=== PATIENT | female | born 1970 | race Caucasian/White ===

== ENCOUNTER 2021-03-01 13:20 | Outpatient (REF) | payer SELFPAY | END 2021-03-01 13:21 | disposition home or self-care (01) | LOC: HO.HAP 13:20 | PROVIDERS: Visit Provider Internal Medicine | DX: Z46.1 Encounter for fitting and adjustment of hearing aid (principal); H90.3 Sensorineural hearing loss, bilateral | CPT/HCPCS: V5267 ==

== ENCOUNTER 2023-06-05 13:10 | Outpatient (REF) | payer SELFPAY | END 2023-06-05 13:11 | disposition home or self-care (01) | LOC: HO.HAP 13:10 | PROVIDERS: Visit Provider Internal Medicine | DX: Z46.1 Encounter for fitting and adjustment of hearing aid (principal); H90.3 Sensorineural hearing loss, bilateral | CPT/HCPCS: 92700; V5267 ==

== ENCOUNTER 2023-09-18 08:00 | Outpatient (REF) | payer OTHER, SELFPAY | END 2023-09-18 08:01 | disposition home or self-care (01) | LOC: HO.SH 08:00 | PROVIDERS: Visit Provider Internal Medicine | DX: Z01.118 Encounter for examination of ears and hearing with other abnormal findings (principal); H90.3 Sensorineural hearing loss, bilateral | CPT/HCPCS: 92557 ==

== ENCOUNTER 2023-09-18 09:01 | Outpatient (REF) | payer SELFPAY ==
--- NOTE | 2023-09-19 08:46 | MHC.AU.HA3 ---
Hearing Instrument Follow-Up- Binaural Date of Visit: 09/18/23 Right Ear: Model Basil, Color, Serial Number: Shaina Diaz [id number] SN: [id number] Color: [employer] Repair Warranty: 10/21/2022 Dry Wall Plasterer Loss and Damage Warranty: 10/21/2022 Battery Size: 13 Client Manager/Slim Tube: 0M [place]/Dome/CShell/SlimTip:Large open dome Type of Wax Guard: CeruShield Dispensed By: [facility] Date of Fittin08/07/2019 Left Ear: Basil, , Color, Serial Number: Shaina Diaz [id number] SN: [id number] Color: Trish [employer] Repair Warranty: 10/21/2022 Dry Wall Plasterer Loss and Damage Warranty: 10/21/2022 Battery Size: 13 Client Manager/Slim Tube: 0M Earmold/Dome/CShell/SlimTip: Large open dome Type of Wax Guard: CeruShield Dispensed By: [facility] Date of Fittin08/07/2019 Follow-Up Summary: Ariela returned for an updated hearing test and hearing aid maintenance. Cleaned hearing aids. Vacuumed microphones. Ran through dehumidifier. Replaced domes and wax guards. Updated firmware. Reran feedback analyzer and reprogrammed to updated hearing test due to slight change in hearing 2-4 kHz. Previously set to auto acclimatization; however, gain was still set to 80%. Turned off auto acclimatization and increased overall gain level to 90%. Also increased noise management settings in [id number] and [id number] programs due to continued difficulty in background noise (e.g., at a restaurant, wedding). Discussed realistic expectations. Ariela will trial new settings. Advised to call within 2-3 weeks if issues with sound quality arise to be covered under today's fee. Recommendations: Hearing instrument follow-up or maintenance as needed. Please contact our clinic with any questions or concerns. Diagnosis Code(s): Primary Diagnosis: H90.3 Bilateral Sensorineural Hearing Loss Signature: Provider: Madalyn Garcia, [facility]
== END 2023-09-18 09:02 | disposition home or self-care (01) ==
LOC: HO.HAP 09:01
PROVIDERS: Visit Provider Internal Medicine
DX: Z46.1 Encounter for fitting and adjustment of hearing aid (principal); H90.3 Sensorineural hearing loss, bilateral
CPT/HCPCS: 92593

== ENCOUNTER 2024-03-31 13:29 | Outpatient (REF) | payer SELFPAY | END 2024-03-31 13:30 | disposition home or self-care (01) | LOC: HO.HAP 13:29 | PROVIDERS: Visit Provider Internal Medicine | DX: Z46.1 Encounter for fitting and adjustment of hearing aid (principal); H90.3 Sensorineural hearing loss, bilateral | CPT/HCPCS: V5299 ==

== ENCOUNTER 2024-11-03 15:58 | Outpatient (REF) | payer SELFPAY ==
--- OUTSIDE RECORDS SUMMARY | 2024-11-03 18:39 | XMS_ITS ---
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2 0.2-1.0 mg/dL Nitrite, Urine Negative Negative Microscopic Examination See below: Micr oscopic was indicated and was performed. WBC None seen 0 - 5 /hpf RBC None seen 0 - 2 /hpf Epithelial Cells (non renal) 0-10 0 - 10 /hpf Casts None seen None seen /lpf Bacteria None seen None seen/Few CBC With Differential/Platel et-[id number] Reviewed date:11/01/2024 04:45:22 PM Interpretation: Performing Lab:[facility], [address], [place], Phone - [phone], Director - Soly Notes/Report: WBC 8.2 3.4-10.8 x10E3/uL RBC 4.23 3.77-5.28 x10E6/uL Hemoglobin 13.5 11.1-15.9 g/dL Hematocrit 40.8 34.0-46.6 % MCV 97 79-97 fL MCH 31.9 26.6-33.0 pg MCHC 33.1 31.5-35.7 g/dL RDW 12.2 11.7-15.4 % Platelets 326 150-450 x10E3/uL Neutrophils 69 Not Estab. % Lymphs 18 Not Estab. % Monocytes 10 Not Estab. % Eos 2 Not Estab. % Basos 1 Not Estab. % Neutrophils (Absolute) 5.8 1.4-7.0 x10E3/uL Lymphs (Absolute) 1.4 0.7-3.1 x10E3/uL Monocytes(Absolute) 0.8 0.1-0.9 x10E3/uL Eos (Absolute) 0.1 0.0-0.4 x10E3/uL Baso (Absolute) 0.0 0.0-0.2 x10E3/uL Immature Granulocytes 0 Not Estab. % Immature Grans (Abs) 0.0 0.0-0.1 x10E3/uL Vitamin D, 97-Mihidqa-[id number] Reviewed date:11/01/2024 04:45:22 PM Interpretation: Performing Lab:[facility], [address] [place] [address], [place], Phone - [phone], Director - Gina Notes/Report: Vitamin D, 25-Hydroxy 22.3 30.0-100.0 ng/mL Vitamin D deficiency has been defined by the [place] of [employer] and an Endocrine Society practice guideline as a level of serum 25-OH vitamin D less than 20 ng/mL (1,2). The Endocrine Society went on to further define vitamin D insufficiency as a level between 21 and 29 ng/mL (2). 1. IOM ([place] of [employer]). 2010. Dietary reference intakes for calcium and D. [place]: The National Academies Press. 2. Jaxson MF, Arnulfo NC, Sade REYES, et al. Evaluation, treatment, and prevention of vitamin D deficiency: an Endocrine Society clinical practice guideline. JCEM. 2010; 96(7):1911-30. Comp. Metabolic Panel (14)-3 [id number] Reviewed date:11/01/2024 04:45:22 PM Interpretation: Performing Lab:[facility] [place], [address] [facility], Phone - [phone], Director - Gina Notes/Report: Glucose 101 70-99 mg/dL BUN 5 6-24 mg/dL Creatinine 0.74 0.57-1.00 mg/dL eGFR 96 >59 mL/min/1.73 BUN/Creatinine Ratio 7 9-23 Sodium 142 134-144 mmol/L Potassium 4.1 3.5-5.2 mmol/L Chloride 105 96-106 mmol/L Carbon Dioxide, Total 21 20-29 mmol/L Calcium 9.5 8.7-10.2 mg/dL Protein, Total 7.1 6.0-8.5 g/dL Albumin 4.6 3.8-4.9 g/dL Globulin, Total 2.5 1.5-4.5 g/dL Bilirubin, Total 0.3 0.0-1.2 mg/dL Alkaline Phosphatase 82 44-121 IU/L AST (SGOT) 17 0-40 IU/L ALT (SGPT) 16 0-32 IU/L LP+Non-HDL Cholesterol-[id number] 5 Reviewed date:11/01/2024 04:45:22 PM Interpretation: Performing Lab:[facility] [place], [address] [facility], Phone - [phone], Director - Gina Notes/Report: Cholesterol, Total 190 100-199 mg/dL Triglycerides 180 0-149 mg/dL HDL Cholesterol 42 >39 mg/dL VLDL Cholesterol Juwan 32 5-40 mg/dL LDL Chol Calc (NIH) 116 0-99 mg/dL Non-HDL Cholesterol 148 0-129 mg/dL FIB-4 w/Rx HOROWITZ [address] -[id number] Reviewed date:11/01/2024 04:45:22 PM Interpretation: Performing Lab:[facility] [place], [address] [facility], [place], Phone - [phone], Director - Soly Notes/Report: FIB-4 Index 0.70 0.00-2.67 0.00 - 1.29 Low risk for advanced liver fibrosis 1.30 - 2.67 Indeterminate risk for advanced liver fibrosis >2.67 High risk for advanced fibrosis and for the development of other liver related events Phosphatidylethanol (PEth)-7 27685 Reviewed date:11/01/2024 04:45:22 PM Interpretation: Performing [facility], [address] [place] [address], Phone - [phone], Director - Gina Notes/Report: PHOSPHATIDYLETHANOL Negative Phosphatidylethanol (PEth) Negative Analyzed compound: PEth 16:0/18:1. 7-jghkxecrh-1-oleoyl-sn- nsawuws-5-moybjxgzajjukv . Analysis performed by Liquid Chromatography with Tandem Mass Spectrometry (LC/MS/MS). Detection limit: 20 ng/mL PEth levels in excess of 20 ng/mL are considered evidence of moderate to heavy ethanol consumption. However, the Center for Substance Abuse Treatment (CSAT) advises caution in interpretation and use of biomarkers alone to assess alcohol use. Results should be interpreted in the context of all available clinical and behavioral information. Reference: Substance Abuse and Mental Health Services Administration (2012). The Role of Biomarkers in the Treatment of Alcohol Use Disorders , 2012 Revision. Advisory, Volume 11, Issue 2. This test was developed and its performance characteristics determined by [facility]. It has not been cleared or approved by the Food and Drug Administration. HCV Antibody-[id number] Reviewed date:11/01/2024 04:45:22 PM Interpretation: Performing Lab:[facility], [address] [place] [address], Phone - [phone], Director - Gina Notes/Report: Hep C Virus Ab Non Reactive Non Reactive HCV antibody alone does not differentiate between previously resolved infection and active infection. Equivocal and Reactive HCV antibody results should be followed up with an HCV RNA test to support the diagnosis of active HCV infection. REASON FOR VISIT Annual Wellness Medications Medication SIG (Take, Route, Frequency, Duration) Notes Start Date End Date Status Vitamin D3 2000 UNIT 1 tablet Orally Once a day Not-Taking Omeprazole 20 MG take 1 capsule by [facility] daily 30 minutes before a morning meal for 90 Active Multi For Her Active Tums Active Tylenol 1 tab Oral for 14 days Active Vitamin B-12 1000 MCG 1 tablet Orally On ce a day for 30 day(s) Active Ibuprofen 200 MG 1 tablet with food o r milk as needed Orally Three times a day Not-Taking Vitamin C 500 MG as directed Orally Active Immunizations Vaccine Route Administration Date Status Comme nts *Tdap IM Intramuscular 10/27/2024 Administered Social History Tobacco Use: Social History Observation Description Date Details (start date - stop date) Never Smoker NA - NA AUDIT-C (Standard) Question Answer Notes Did you have a drink contain ing alcohol in the past year? Yes How often did you have a dri nk containing alcohol in the past year? 2 to 4 times a month (2 points) How many drinks did you have on a typical day when you were drinking in the past year? 1 or 2 drinks (0 point) How often did you have six o r more drinks on one occasion in the past year? Never (0 point) Points 2 Interpretation Negative Tobacco Control (Standard) Question Answer Notes Tobacco use: Nonsmoker Problems Problem Type SNOMED Code ICD Code Onset Dates Problem Status W/U Status Risk Notes Problem HOROWITZ - Nonalcoholic steatohepatitis (106405299) Nonalcoholic steatohepatitis (HOROWITZ) (K75.81) Active confirmed Vital Signs Temperature 97.7 degrees Fahrenheit 10/28/19 25 Blood pressure systolic 116 mm Hg 10/28/19 25 Blood pressure diastolic 66 mm Hg 025 Heart Rate 77 /min 10/27/2024 Height 63 in 10/27/2024 Weight 187 lbs 10/27/2024 BMI 33.12 kg/m2 10/27/2024 Oximetry 99 % 10/27/2024 Encounters Encounter Location Date Provider Diagnosis Jodee Stevenson MD [address] [phone] 10/27/2024 Jodee Stevenson Encounter for genera l adult medical examination without abnormal findings Z00.00 ; Mixed hyperlipidemia E78.2 ; Nonalcoholic steatohepatitis (HOROWITZ) K75.81 ; Vitamin D deficiency, unspecified E55.9 ; Encounter for screening for malignant neoplasm of colon Z12.11 ; Encounter for screening mammogram for malignant neoplasm of breast Z12.31 ; Encounter for screening for osteoporosis Z13.820 ; Encounter for screening for cardiovascular disorders Z13.6 ; Encounter for immunization Z23 ; Encounter for antibody response examination Z01.84 ; Encounter for screening for other viral diseases Z11.59 ; Sensorineural hearing loss, bilateral H90.3 and Presence of external hearing-aid Z97.4 Assessments Encounter Date Diagnosis (ICD Code) Assessment Notes Treatment Notes Treatment Clinical Notes Section Notes 10/27/2024 Encounter for general adult medical examination without abnormal findings (ICD-10 - Z00.00) General healthcare up-to-date. Check routine labs 10/27/2024 Mixed hyperlipidemia (ICD-10 - E78.2) Stable on prior labs as reviewed. Recheck status 10/27/2024 Nonalcoholic steatohepatitis (HOROWITZ) (ICD-10 - K75.81) Her transaminitis has normalized. Can recheck status to verify that it remains normal and evaluation for autoimmune etiology was unremarkable. Can also assess for risk for fibrosis. 10/27/2024 Vitamin D deficiency, unspecified (ICD-10 - E55.9) Fair control on prior labs as reviewed. Recheck level and would consider vitamin D supplementation for goal level of 30+ 10/27/2024 Encounter for screening for malignant neoplasm of colon (ICD-10 - Z12.11) Due for repeat colon cancer screening 10/27/2024 Encounter for screening mammogram for malignant neoplasm of breast (ICD-10 - Z12.31) Due for repeat breast cancer screening as per biennial recommendation 10/27/2024 Encounter for screening for osteoporosis (ICD-10 - Z13.820) Will consider osteoporosis screening closer to age 65 or after menopause 10/27/2024 Encounter for screening for cardiovascular disorders (ICD-10 - Z13.6) Blood pressure stable. Can check for comorbidity of hyperlipidemia and hyperglycemia to further assess risk 10/27/2024 Encounter for immunization (ICD-10 - Z23) Vaccines updated 10/27/2024 Encounter for antibody response examination (ICD-10 - Z01.84) Titers have been checked in the past and there is immunity to rubeola 10/27/2024 Encounter for screening for other viral diseases (ICD-10 - Z11.59) Can screen for hepatitis C as per general recommendation 10/27/2024 Sensorineural hearing loss, bilateral (ICD-10 - H90.3) Stable and unchanged 10/27/2024 Presence of external hearing-aid (ICD-10 - Z97.4) Stable and unchanged 10/27/2024 Other This note was created with voice dictation recognition software and may contain errors of grammar and syntax. Also labs were reviewed with patient. Plan Of Treatment Pending Test Test Name Order Date COLOGUARD 10/27/2024 MG MAMMO DIGITAL SCREENING BILAT 025 Next Appt Details Follow Up: 1 Year, Reason: A nnual Provider Name:Jodee Stevenson , 11/04/2025 08:30:00 AM, [address] [place] [address], [address], [place], [phone], Progress Notes * Mack PARDOOB:1970 (54 yo F)Acc No.[id number]:10/27/2024 Progress Notes Patient:Ariela INTERIANO Provider:?Jodee Stevenson MD :1970???Age:54 Y???Sex:Female D ate:10/27/2024 Address:[address] [place], [place] [id number] Subjective: * Chief Complaints: * ???Annual Wellness * HPI: ???Depression Screening:?PHQ-2 (2015 Edition)?Little interest or pleasure in doing things??Not at all ?Feeling down, depressed, or hopeless??Not at all ?Total Score?0 * Medical History:? * Surgical History:?Appendecto my 1998 * Ocular Surgical History:? Ocular Surgical History revi ewed with the patient. * Hospitalization/Major Diagno stic Procedure:?Denies Past Hospitalization * Family History:?Father: jose hinojosa 87 yrs, Healthy.?Spouse: alive 53 yrs, Healthy.?Mother: , Heart disease. at 72 years old.?4 sister(s) - healthy. .? No family history of: cancer-breast No family history of: cancer-colon Father: CAD, Hyperlipidemia Maternal grandmother: CVA (stroke) Paternal grandmother: CAD (AWV) Family history verified no changes since last visit. * Social History:?Tobacco Use:?Tobacco Control (Standard)?Tobacco use:?Nonsmoker ???Drugs/Alcohol:?Drugs?Have you used drugs other than those for medical reasons in the past 12 months??No ?Caffeine?Intake:?1-2 cups per day ?Do you smoke marijuana?: Denies. ?Do you drink alcohol?: Yes, Socially. ???Miscellaneous:?Exercise: no. 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 ???Household:?Household?Marital status:?Drug/Alcohol:?AUDIT-C (Standard)?Did you have a drink containing alcohol in the past year??Yes ?How often did you have a drink containing alcohol in the past year??2 to 4 times a month (2 points) ?How many drinks did you have on a typical day when you were drinking in the past year??1 or 2 drinks (0 point) ?How often did you have six or more drinks on one occasion in the past year??Never (0 point) ?Points?2 ?Interpretation?Negative * Medications:?TakingVitamin B -12 1000 MCG Tablet 1 tablet Orally Once a day Vitamin C 500 MG Capsule as directed Orally Tylenol 1 tab Oral Tums Multi For Her Omeprazole 20 MG Capsule Delayed Release take 1 capsule by mouth daily 30 minutes before a morning meal Taking Vitamin B-12 1000 MCG Tablet 1 tablet Orally Once a day Taking Vitamin C 500 MG Capsule as directed Orally Taking Tylenol 1 tab Oral Taking Tums Taking Multi For Her Taking Omeprazole 20 MG Capsule Delayed Release take 1 capsule by mouth daily 30 minutes before a morning meal Not-Taking/PRNVitamin D3 2000 UNIT Tablet 1 tablet Orally Once a day Ibuprofen 200 MG Tablet 1 tablet with food or milk as needed Orally Three times a day Not-Taking/PRN Vitamin D3 2000 UNIT Tablet 1 tablet Orally Once a day Not-Taking/PRN Ibuprofen 200 MG Tablet 1 tablet with food or milk as needed Orally Three times a day DiscontinuedDicyclomine HCl 20 MG Tablet TAKE 1 TABLET BY MOUTH 4 TIMES DAILY Methocarbamol 500 MG Tablet TAKE 1 & 1/2 TABLETS BY MOUTH EVERY 4 HOURS Medication List reviewed and reconciled with the patientDiscontinued Dicyclomine HCl 20 MG Tablet TAKE 1 TABLET BY MOUTH 4 TIMES DAILY Discontinued Methocarbamol 500 MG Tablet TAKE 1 & 1/2 TABLETS BY MOUTH EVERY 4 HOURS Medication List reviewed and reconciled with the patient * Allergies:?N.K.D.A.no[Allerg ies Verified] Objective: * Vitals:?Temp:97.7F, HR:77/mi n, BP:Sitting Right Arm: 116/66mm Hg, Wt:187lbs, BMI:33.12Index, Ht:63in, Oxygen sat %:99%. Past Vitals:* 07/17/2023 Temp:97.5F, HR:78/min, BP: 1 40/90 mm Hg,Sitting Right Arm:136/70mm Hg, Wt:197.4lbs, BMI:34.96Index, Ht:63in, Oxygen sat %:96% * 07/04/2022 BP:Sitting Right Arm:128/80m m Hg, Wt:192lbs, BMI:34.01Index, Ht:63in * 12/04/2021 Wt:207 lb 2 oz, BMI:36.69Ind ex, Ht:63in * ???Past Orders: Lab:COMPLETE CBC WITH DIFF * Collection Date 07/17/2023 09/11/2019 Collection Time 11:20 AM 11:18 AM Order Date 07/17/2023 03/27/2019 WBC 8.4 (Ref Range: (4.0-11.0) K/MM3) 10.9 (Ref Range: (4.0-11.0) K/MM3) RBC 4.20 (Ref Range: (4.20-5.40) M/MM3) 4.16?L (Ref Range: (4.20-5.40) M/MM3) HGB 13.6 (Ref Range: (11.7-15.5) GM/DL) 13.6 (Ref Range: (11.7-15.5) GM/DL) HCT 41.2 (Ref Range: (35.7-45.8) %) 40.3 (Ref Range: (35.7-45.8) %) MCV 98.1 (Ref Range: (80.0-100.0) FL) 96.9 (Ref Range: (80.0-100.0) FL) MCH 32.4 (Ref Range: (27.0-34.0) PG) 32.7 (Ref Range: (27.0-34.0) PG) MCHC 33.0 (Ref Range: (33.0-37.0) g/dL) 33.7 (Ref Range: (33.0-37.0) g/dL) MPV 10.4 (Ref Range: (9.4-12.4) FL) 10.3 (Ref Range: (9.4-12.4) FL) RDW-SD 42.0 (Ref Range: (<47.0) FL) 41.6 (Ref Range: (<47.0) FL) ABS. NRBC 0.0 (Ref Range: K/MM3) 0.0 (Ref Range: K/MM3) Imm Gran 0.4 (Ref Range: %) 0.3 (Ref Range: %) Abs. Imm Gran 0.0 (Ref Range: K/MM3) 0.0 (Ref Range: K/MM3) PLT 364 (Ref Range: (150-460) K/MM3) 397 (Ref Range: (150-460) K/MM3) AUTOMATED NRBC 0.0 (Ref Range: #/100 WBC'S) 0.0 (Ref Range: #/100 WBC'S) NEUT 56.9 (Ref Range: (44-76) %) 63.4 (Ref Range: (44-76) %) LYMPH 32.1 (Ref Range: (15-43) %) 24.3 (Ref Range: (15-43) %) MONOCYTE 8.9 (Ref Range: (4.5-10.5) %) 9.8 (Ref Range: (4.5-10.5) %) EO 1.1 (Ref Range: (0-6) %) 1.7 (Ref Range: (0-6) %) LYMPH # 2.7 (Ref Range: (0.8-3.1) K/MM3) 2.6 (Ref Range: (0.8-3.1) K/MM3) BASO 0.6 (Ref Range: (0-2) %) 0.5 (Ref Range: (0-2) %) MONO# 0.8 (Ref Range: (0.4-0.9) K/MM3) 1.1?H (Ref Range: (0.4-0.9) K/MM3) NEUT # 4.8 (Ref Range: (1.3-7.0) K/MM3) 6.9 (Ref Range: (1.3-7.0) K/MM3) EO # 0.1 (Ref Range: (0.0-0.4) K/MM3) 0.2 (Ref Range: (0.0-0.4) K/MM3) BASO # 0.1 (Ref Range: (0.0-0.1) K/MM3) 0.1 (Ref Range: (0.0-0.1) K/MM3) * Lab:COMPREHENSIVE METABOLIC PANEL * Collection Date 07/17/2023 04/22/2020 09/11/2019 Collection Time 11:20 AM 12:40 PM 11:18 AM Order Date 07/17/2023 03/29/2020 03/27/2019 ALBUMIN 4.5 (Ref Range: (3.4-4.8) GM/DL) 4.6 (Ref Range: (3.4-4.8) GM/DL) 4.8 (Ref Range: (3.4-4.8) GM/DL) ALK PHOS 71 (Ref Range: (35-104) U/L) 85 (Ref Range: (35-104) U/L) 71 (Ref Range: (35-104) U/L) BILIRUBIN,TOTAL 0.4 (Ref Range: (0-1.2) MG/DL) 0.4 (Ref Range: (0-1.2) MG/DL) 0.2 (Ref Range: (0-1.2) MG/DL) CALCIUM 9.7 (Ref Range: (8.6-10.5) MG/DL) 9.5 (Ref Range: (8.6-10.5) MG/DL) 9.8 (Ref Range: (8.6-10.5) MG/DL) BICARBONATE 26 (Ref Range: (22-29) MMOL/L) 23 (Ref Range: (22-29) MMOL/L) 25 (Ref Range: (22-29) MMOL/L) CHLORIDE 104 (Ref Range: (98-107) MMOL/L) 100 (Ref Range: (98-107) MMOL/L) 102 (Ref Range: (98-107) MMOL/L) EST GFR NON AMERI 106 (Ref Range: ML/MIN/1.73 M2) 102 (Ref Range: ML/MIN/1.73 M2) 87 (Ref Range: ML/MIN/1.73 M2) EST GFR NR 118 (Ref Range: ML/MIN/1.73 M2) 100 (Ref Range: ML/MIN/1.73 M2) CREATININE 0.7 (Ref Range: (0.5-1.0) MG/DL) 0.7 (Ref Range: (0.5-1.0) MG/DL) 0.8 (Ref Range: (0.5-1.0) MG/DL) ANION GAP 9 (Ref Range: (4-17)) 16 (Ref Range: (4-17)) 13 (Ref Range: (4-17)) GLUCOSE 96 (Ref Range: (70-99) MG/DL) 96 (Ref Range: (70-99) MG/DL) 101?H (Ref Range: (70-99) MG/DL) AST 20 (Ref Range: (0-32) U/L) 35?H (Ref Range: (0-32) U/L) 25 (Ref Range: (0-32) U/L) ALT 25 (Ref Range: (0-33) U/L) 66?H (Ref Range: (0-33) U/L) 44?H (Ref Range: (0-33) U/L) POTASSIUM 4.2 (Ref Range: (3.6-5.2) MMOL/L) 4.1 (Ref Range: (3.6-5.2) MMOL/L) 4.6 (Ref Range: (3.6-5.2) MMOL/L) SODIUM 139 (Ref Range: (133-145) MMOL/L) 139 (Ref Range: (133-145) MMOL/L) 140 (Ref Range: (133-145) MMOL/L) TOTAL PROTEIN 7.2 (Ref Range: (6.2-8.2) GM/DL) 7.5 (Ref Range: (6.2-8.2) GM/DL) 8.1 (Ref Range: (6.2-8.2) GM/DL) BUN 8 (Ref Range: (6-20) MG/DL) 5?L (Ref Range: (6-20) MG/DL) 10 (Ref Range: (6-20) MG/DL) AG RATIO 1.7 1.6 1.5 * Lab:LIPID PANEL W REFLEX TO DLDL * Collection Date 07/17/2023 09/11/2019 Collection Time 11:20 AM 11:18 AM Order Date 07/17/2023 03/27/2019 LDL CHOLESTEROL, CALCULAT 136?H (Ref Range: (0-130) MG/DL) 174?H (Ref Range: (0-130) MG/DL) CHOLESTEROL, TOTAL 213?H (Ref Range: (<200) MG/DL) 272?H (Ref Range: (<200) MG/DL) HDL CHOL 62 (Ref Range: (>39) MG/DL) 56 (Ref Range: (>39) MG/DL) NON HDL CHOLESTEROL (CALC 151 (Ref Range: (<160) MG/DL) 216?H (Ref Range: (<160) MG/DL) TRIGLYCERIDES 73 (Ref Range: (<150) MG/DL) 211?H (Ref Range: (<150) MG/DL) CHOLESTEROL/HDL RATIO (CA 3.4 (Ref Range: (<5.0)) 4.9 (Ref Range: (<5.0)) * Lab:25OH VITAMIN D * Collection Date 07/17/2023 09/11/2019 Collection Time 11:20 AM 11:18 AM Order Date 07/17/2023 03/27/2019 25OH VITAMIN D 33.5 (Ref Range: (20-50) NG/ML) 30.9 (Ref Range: (20-50) NG/ML) * Lab:COMPLETE URINALYSIS * Collection Date 07/17/2023 09/11/2019 Collection Time 11:20 AM 11:18 AM Order Date 07/17/2023 03/27/2019 APPEAR/COLOR COLORLESS LIGHT YELLOW SP. GRAVITY 1.005 (Ref Range: (1.002-1.030)) 1.006 (Ref Range: (1.002-1.030)) URINE PH 7.0 (Ref Range: (5.0-8.0)) 7.0 (Ref Range: (5.0-8.0)) URINE ALBUMIN NEGATIVE (Ref Range: (NEG)) NEGATIVE (Ref Range: (NEG)) URINE GLUCOSE NEGATIVE (Ref Range: (NEG)) NEGATIVE (Ref Range: (NEG)) URINE KETONES NEGATIVE (Ref Range: (NEG)) NEGATIVE (Ref Range: (NEG)) URINE BILIRUBIN NEGATIVE (Ref Range: (NEG)) NEGATIVE (Ref Range: (NEG)) URINE HEMOGLOBN NEGATIVE (Ref Range: (NEG)) NEGATIVE (Ref Range: (NEG)) URINE NITRITE NEGATIVE (Ref Range: (NEG)) NEGATIVE (Ref Range: (NEG)) URINE LEUKOCYTE NEGATIVE (Ref Range: (NEG)) NEGATIVE (Ref Range: (NEG)) UROBILINOGEN NORMAL (Ref Range: (NORM) MG/DL) NORMAL (Ref Range: (NORM) MG/DL) URINE WBC'S <1 (Ref Range: (0-5) /HPF) <1 (Ref Range: (0-5) /HPF) URINE RBC'S <1 (Ref Range: (0-3) /HPF) 1 (Ref Range: (<3) /HPF) BACTERIA SLIGHT?A (Ref Range: (NEG) HPF) SLIGHT?A (Ref Range: (NEG) HPF) SQUAMOUS EPITH 4 (Ref Range: (0-8) /HPF) 1 (Ref Range: /HPF) ???Lab:ANTI-HEPATITIS C W/RFLX HCV QNT (Order Date - 07/17/2023) (Collection Date & Time - 07/17/2023 11:20 AM)?ValueReference Range?ANTI- HEPATITIS CNEGATIVE(NEG) - ???Lab:MMR (MEASLES, MUMPS, RUBELLA) IGG TITER (Order Date - 03/27/2019) (Collection Date & Time -09/11/2019 11:18 AM)?ValueReference Range ?MUMPS AB IGGPOSITIVE-?RUBELLA IGG ANTIBODYPOSITIVE- ?RUBEOLA AB IGGPOSITIVE- * Examination: ???General Examination: ?GENERAL APPEARANCE:?Age appropriate, in no acute distress, well developed, well nourished.?HEAD:?normocephalic, atraumatic.?EYES:?extraocular movement intact (EOMI), sclera non-icteric.?NECK/THYROID:?neck supple, full range of motion, no thyromegaly.?LYMPH NODES:?no cervical adenopathy.?HEART:?regular rate and rhythm, S1, S2 normal.?LUNGS:?clear to auscultation bilaterally.?BACK:?no kyphosis, no scoliosis.?EXTREMITIES:?no clubbing, cyanosis, or edema.?NEUROLOGIC:?nonfocal, alert and oriented, gait normal, motor strength grossly normal upper and lower extremities, no tremor.?PSYCH:?alert, oriented, good eye contact.? Assessment: * Assessment: 1.?Mixed hyperlipidemia - E7 8.2???2.?Encounter for general adult medical examination without abnormal findings - Z00.00 (Primary)???3.?Nonalcoholic steatohepatitis (HOROWITZ) - K75.81???4.?Vitamin D deficiency, unspecified - E55.9? ?5.?Encounter for screening for malignant neoplasm of colon - Z12.11???6.?Encounter for screening mammogram for malignant neoplasm of breast - Z12.31???7.?Encounter for screening for osteoporosis - Z13.820???8.?Encounter for screening for cardiovascular disorders - Z13.6???9.?Encounter for immunization - Z23???10.?Encounter for antibody response examination - Z01.84???11.?Encounter for screening for other viral diseases - Z11.59???12.?Sensorineural hearing loss, bilateral - H90.3???13.?Presence of external hearing-aid - Z97.4??? Plan: * Treatment: ? Value Reference Range ?Specific [place] 1.007 1.005- 1.030 - * ?pH 6.5 5.0-7.5 - * ?Urine-Color Yellow Yellow - * ?Appearance Clear Clear - * ?WBC Esterase Negative Negative - * ?Protein Negative Negative/Trace - * ?Glucose Negative Negative - * ?Ketones Negative Negative - * ?Occult Blood Trace A Negative - * ?Bilirubin Negative Negative - * ?Urobilinogen,Semi-Qn 0.2 0. 2-1.0 - mg/dL * ?Nitrite, Urine Negative Negative - * ?Microscopic Examination See below: - * ?WBC None seen 0 - 5 - /hpf * ?RBC None seen 0 - 2 - /hpf * ?Epithelial Cells (non renal) 0-10 0 - 10 - /hpf * ?Casts None seen None seen - /lp f * ?Bacteria None seen None seen/Few - * This lab was reviewed by Chuck Stevenson on 11/01/2024 at 16:45 PM EDT ?LAB: CBC With Differential/Platelet-[id number]* ? Value Reference Range ?WBC 8.2 3.4-10.8 - x10E 3/uL * ?RBC 4.23 3.77-5.28 - x10 E6/uL * ?Hemoglobin 13.5 11.1-15.9 - g/dL * ?Hematocrit 40.8 34.0-46.6 - % * ?MCV 97 79-97 - fL * ?MCH 31.9 26.6-33.0 - pg * ?MCHC 33.1 31.5-35.7 - g/d L * ?RDW 12.2 11.7-15.4 - % * ?Platelets 326 150-450 - x10 E3/uL * ?Neutrophils 69 Not Estab. - % * ?Lymphs 18 Not Estab. - % * ?Monocytes 10 Not Estab. - % * ?Eos 2 Not Estab. - % * ?Basos 1 Not Estab. - % * ?Neutrophils (Absolute) 5.8 1.4-7.0 - x10E3/uL * ?Lymphs (Absolute) 1.4 0.7-3 .1 - x10E3/uL * ?Monocytes(Absolute) 0.8 0.1 -0.9 - x10E3/uL * ?Eos (Absolute) 0.1 0.0-0.4 - x10E3/uL * ?Baso (Absolute) 0.0 0.0-0.2 - x10E3/uL * ?Immature Granulocytes 0 N ot Estab. - % * ?Immature Grans (Abs) 0.0 0. 0-0.1 - x10E3/uL * This lab was reviewed by Chuck Stevenson on 11/01/2024 at 16:45 PM EDT ?LAB: Comp. Metabolic Panel [id number] ? Value Reference Range ?Glucose 101 H 70-99 - mg/dL * ?BUN 5 L 6-24 - mg/dL * ?Creatinine 0.74 0.57-1.00 - mg/dL * ?BUN/Creatinine Ratio 7 L 9- 23 - * ?Sodium 142 134-144 - mmol/ L * ?Potassium 4.1 3.5-5.2 - mmo l/L * ?Chloride 105 96-106 - mmol/ L * ?Carbon Dioxide, Total 21 2 0-29 - mmol/L * ?Calcium 9.5 8.7-10.2 - mg/d L * ?Protein, Total 7.1 6.0-8.5 - g/dL * ?Albumin 4.6 3.8-4.9 - g/dL * ?Globulin, Total 2.5 1.5-4.5 - g/dL * ?Bilirubin, Total 0.3 0.0-1. 2 - mg/dL * ?Alkaline Phosphatase 82 44 -121 - IU/L * ?AST (SGOT) 17 0-40 - IU/L * ?ALT (SGPT) 16 0-32 - IU/L * ?eGFR 96 >59 - mL/min/1. 73 * This lab was reviewed by Chuck Stevenson on 11/01/2024 at 16:45 PM EDT ?LAB: LP+Non-HDL Cholesterol-[id number]* ? Value Reference Range ?Cholesterol, Total 190 100- 199 - mg/dL * ?Triglycerides 180 H 0-149 - m g/dL * ?HDL Cholesterol 42 >39 - m g/dL * ?VLDL Cholesterol Jwuan 32 5- 40 - mg/dL * ?LDL Chol Calc (NIH) 116 H 0-9 9 - mg/dL * ?Non-HDL Cholesterol 148 H 0-1 29 - mg/dL * This lab was reviewed by Chuck Stevenson on 11/01/2024 at 16:45 PM EDT Clinical Notes: General healthcare up-to-date. Check routine labs??2.?Mixed hyperlipidemia? Clinical Notes: Stable on prior labs as reviewed. Recheck status?? 3.?Nonalcoholic steatohepatitis (HOROWITZ)?LAB: FIB-4 w/Rx HOROWITZ FibroSure Plus-[id number]* ? Value Reference Range ?FIB-4 Index 0.70 0.00-2.67 - * This lab was reviewed by Chuck Stevenson on 11/01/2024 at 16:45 PM EDT ?LAB: Phosphatidylethanol (PEth)-[id number]* ? Value Reference Range ?PHOSPHATIDYLETHANOL Negative - * ?Phosphatidylethanol (PEth) Negative - ng/mL * This lab was reviewed by Chuck Steevnson on 11/01/2024 at 16:45 PM EDT Clinical Notes: Her transaminitis has normalized. Can recheck status to verify that it remains normal and evaluation for autoimmune etiology was unremarkable. Can also assess for risk for fibrosis. ?4.?Vitamin D deficiency, unspecified?LAB: Vitamin D, 84-Tqrmygo-[id number]* ? Value Reference Range ?Vitamin D, 25-Hydroxy 22.3 L 3 0.0-100.0 - ng/mL * This lab was reviewed by Chuck Stevenson on 11/01/2024 at 16:45 PM EDT Clinical Notes: Fair control on prior labs as reviewed. Recheck level and would consider vitamin D supplementation for goal level of 30+??5.?Encounter for screening for malignant neoplasm of colon?LAB: COLOGUARD Clinical Notes: Due for repeat colon cancer screening??6.?Encounter for screening mammogram for malignant neoplasm of breast?Imaging: MG MAMMO DIGITAL SCREENING BILAT Clinical Notes: Due for repeat breast cancer screening as per biennial recommendation??7.?Encounter for screening for osteoporosis? Clinical Notes: Will consider osteoporosis screening closer to age 65 or after menopause??8.?Encounter for screening for cardiovascular disorders? Clinical Notes: Blood pressure stable. Can check for comorbidity of hyperlipidemia and hyperglycemia to further assess risk??9.?Encounter for immunization? Clinical Notes: Vaccines updated??10.?Encounter for antibody response examination? Clinical Notes: Titers have been checked in the past and there is immunity to rubeola??11.?Encounter for screening for other viral diseases?LAB: HCV Antibody-[id number]* ? Value Reference Range ?Hep C Virus Ab Non Reactive Non Reac tive - * This lab was reviewed by Chuck Stevenson on 11/01/2024 at 16:45 PM EDT Clinical Notes: Can screen for hepatitis C as per general recommendation?? 12.?Sensorineural hearing loss, bilateral? Clinical Notes: Stable and unchanged??13.?Presence of external hearing-aid? Clinical Notes: Stable and unchanged??14.?Others? Clinical Notes: This note was created with voice dictation recognition software and may contain errors of grammar and syntax. Also labs were reviewed with patient.?? * Immunizations:? *Tdap : 0.5 mL (Route: Intramuscular) given by [facility] on Left Deltoid (Encounter for immunization) * Procedure Codes:?G0446 EDGARDO F 2F INT BEHV TX CV DZ IND 15 MN, Modifiers: 25 89417 TDAP VACCINE >7 [id number] IMMUNIZATION ADMIN * Preventive Medicine:? ??YOUR PREVENTIVE WELLNESS PLAN:?Prenar?The Recommended Frequency is:?1 dose age 65+ ?Breast Cancer Screening (Mammogram):?The Recommended Frequency is:?Every 1 year, age 50-74 (without family history), Every 2 year, age 40-50 (without family history) ?Osteoporosis Screening (Bone Density Measurement):?The Recommended Frequency is:?Routinely, for women ages 65+ ?Colorectal Cancer Screening:?The Recommended Frequency is:?Every 3 years, Cologuard ?Pneumococcal (Pneumonia) Vaccine:?The Recommended Frequency is:?1 dose age 65+ ?Influenza (Flu) Vaccine:?The Recommended Frequency is:?Annually ??Immunizations:?TdaP?Last Tdap was administered?12/25/2012 ?Tetanus?Last Tetanus was administered?11/14/2011 ?Influenza?Last Influenza was administered?09/11/2022 ?COVID?Food Service Technician?Moderna ?First Dose?12/15/2020 ?Second Dose?01/17/2021 ??Screenings:?Breast Cancer Screening:?Date of most recent screening:?07/18/2022 ?Imaging Location?[facility] ?Colon cancer screening?Date of most recent screening:?05/03/2021 ?Colorectal screening:?Cologuard ?Provider recommendation:?3 years * Follow Up:?1 Year (Reason: A nnual) Care Plan: * Problems:? * Images: Billing Information: * Visit Code:? G0442 Annual Alcohol Misuse Screening, 15 min. Modifiers: 25 G0444 Annual Depression Screening, 15 min. Modifiers: 64431 Preventive Care Est Pt. Age 40-64. * Procedure Codes:? G0446 EDGARDO F2F INT BEHV TX CV DZ IND 15 MN. Modifiers: 75392 TDAP VACCINE >7 IM. 78690 IMMUNIZATION ADMIN. * Sign off status: Completed true * Provider:?Jodee Stevenson MD Date:?10/27 Generated for Jadoni ng/Faxing/eTransmitting on:?11/03/2024 06:39 PM EDT History and Physical Notes * HPI (History of Present Illness) Category Sub-Category Detail Notes Category Not es Depression Screening PHQ-2 (2015 Edition) Little interest or pleasure in doing things?: Not at all Feeling down, depressed, or hopeless?: N ot at all Total Score: 0 Examination Category Sub-Category Detail Notes Category Not es General Examination GENERAL APPEARANCE: Age appr opriate, in no acute distress, well developed, well nourished HEAD: normocephalic, atrau matic EYES: extraocular movement intact (EOMI), sclera non-icteric NECK/THYROID: neck supple, full ra nge of motion, no thyromegaly HEART: regular rate and rhy thm, S1, S2 normal LUNGS: clear to auscultatio n bilaterally NEUROLOGIC: nonfocal, alert and oriented, gait normal, motor strength grossly normal upper and lower extremities, no tremor EXTREMITIES: no clubbing, cyanosi s, or edema BACK: no kyphosis, no scol iosis LYMPH NODES: no cervical adenopat hy PSYCH: alert, oriented, goo d eye contact
--- OUTSIDE RECORDS SUMMARY | 2024-11-03 18:39 | XMS_ITS ---
Author Organization Jodee Stevenson MD Address [address] [id number] Care Team Providers Care Bingo Attendant Name Role Phone Jodee Stevenson Primary Care Provider REASON FOR VISIT Annual Encounters Encounter Location Date Provider Diagnosis Jodee Stevenson MD [address] [place] [address] [place] [phone] 07/30/2024 Jodee Stevenson Plan Of Treatment Next Appt Details Provider Name:Jodee Stevenson , 11/04/2025 08:30:00 AM, [address] [place] [address], [place] [address], [place], [place], [phone], Progress Notes * Mack GAVINOB:1970 (54 yo F)Acc No.[id number]:07/30/2024 Progress Notes Patient:?Ariela GAVIN Provider:?Joede Stevenson MD :1970???Age:53 Y???Sex:Female D ate:07/30/2024 Address:[address] [place] [address], [place], [id number] Subjective: * Chief Complaints: * ???1. Annual. * Medical History:? * Ocular Surgical History:? Objective: * Vitals:? Past Vitals:* 07/17/2023 Temp:97.5F, HR:78/min, BP: 1 40/90 mm Hg,Sitting Right Arm:136/70mm Hg, Wt:197.4lbs, BMI:34.96Index, Ht:63in, Oxygen sat %:96% * 07/04/2022 BP:Sitting Right Arm:128/80m m Hg, Wt:192lbs, BMI:34.01Index, Ht:63in * 12/04/2021 Wt:207 lb 2 oz, BMI:36.69Ind ex, Ht:63in Assessment: Plan: * Treatment: Care Plan: * Problems:? * Images: Billing Information: * Visit Code:? * Procedure Codes:? * Electronic signature of Charlette Stevenson MD on 11/03/2024 at 06:39 PM EDT Sign off status: Pending * Provider:?Jodee Stevenson MD Date:?07/30 Generated for Mansoor arambula/Charley/Keshawn on:?11/03/2024 06:39 PM EDT
--- OUTSIDE RECORDS SUMMARY | 2024-11-03 18:39 | XMS_ITS ---
Author Organization Jodee Stevenson MD Address [address] [place] [phone] Care Team Providers Care Utility Operator Yarn Name Role Phone Jodee Stevenson Primary Care Provider REASON FOR VISIT 4m f/u bp Encounters Encounter Location Date Provider Diagnosis Jodee Stevenson MD [address] [place] [address] [place] [phone] 10/25/2023 Jodee Stevenson Plan Of Treatment Next Appt Details Provider Name:Jodee Stevenson , 11/04/2025 08:30:00 AM, [address] [place] [address], [place] [address], [place], [place], [phone], Progress Notes * Mack GAVINOB:1970 (54 yo F)Acc No.[id number]:10/25/2023 Progress Notes Patient:?Ariela GAVIN Provider:?Jodee Stevenson MD :1970???Age:53 Y???Sex:Female D ate:10/25/2023 Address:[address] [place] [address], [id number] Subjective: * Chief Complaints: * ???1. 4m f/u bp. * Medical History:? Objective: * Vitals:? Past Vitals:* 07/17/2023 Temp:97.5F, HR:78/min, BP: 1 40/90 mm Hg,Sitting Right Arm:136/70mm Hg, Wt:197.4lbs, BMI:34.96Index, Ht:63in, Oxygen sat %:96% * 07/04/2022 BP:Sitting Right Arm:128/80m m Hg, Wt:192lbs, BMI:34.01Index, Ht:63in * 12/04/2021 Wt:207 lb 2 oz, BMI:36.69Ind ex, Ht:63in Assessment: Plan: * Treatment: * Images: Billing Information: * Visit Code:? * Procedure Codes:? * Electronic signature of Charlette Stevenson MD on 11/03/2024 at 06:39 PM EDT Sign off status: Pending * Provider:?Jodee Stevenson MD Date:?10/24 Generated for Mansoor arambula/Charley/Keshawn on:?11/03/2024 06:39 PM EDT
--- OUTSIDE RECORDS SUMMARY | 2024-11-03 18:39 | XMS_ITS | Clinical Summary ---
Author Organization [facility] Address [address] [place] [address] Phone Care Team Providers Care Carpenter Refrigerator Name Role Phone Jodee Gloria MD Primary Care Provider [phone] Allergies No known active allergies Medications calcium carbonate (TUMS E-X ORAL) Take by mouth. Activ e calcium carbonate (TUMS ORAL) Take 1,000 mg by mouth. Active cyanocobalamin, vitamin B-12, (VITAMIN B-12 ORAL) Take by mouth. Activ e dicyclomine (BENTYL) 20 mg tablet Take 20 mg by mouth every 6 hours. Active methocarbamol (ROBAXIN ORAL) Take by mouth. Active METHOCARBAMOL ORAL Take by mouth. Activ e multivit-minera ls/folic acid (ADULT ONE DAILY GUMMIES ORAL) Take by mouth. Activ e Vitamin iron fum-folic acid 27-0.8 mg per tablet Take 1 Tab by mouth daily. 7 Active L. acidophilus/Bif id. animalis (DAILY PROBIOTIC ORAL) Take by mouth. Active ranitidine HCl (ZANTAC 150 EFFERDOSE ORAL) Take 75 mg by mouth. Active SUCRALFATE ORAL Take by mouth. Active triamcinolone acetonide (KENALOG-40) 40 mg/mL injection Inject 1 mL into the articular space once for 1 dose. 3 Active acetaminophen (TYLENOL ORAL) Take by mouth. Active omeprazole (PriLOSEC) [address] capsuleIndicati ons:gastroesoph ageal reflux disease Take 1 capsule (20 mg total) by mouth 1 (one) time each day. Do not crush or chew. Active Immunizations Name Administration Dates Next Due Moderna SARS-CoV-2 COVID-19, mRNA, LNP-S, preservative free 01/17/2021,12/15/2020 Surgical History Surgery Date Site/Laterality Comments TONSILLECTOMY PROCEDURE: HISTORICAL TONSILLECTOMY APPENDECTOMY PROCEDURE: HISTORICAL APPENDECTOMY Medical History Medical History Date Comments Seizure (CMS/HCC) 1989 DX:Seizure (HC C); COMMENT: ?related to anxiety Anxiety DX:Anxiety Acid reflux DX:Acid reflux Arthritis of neck DX:Arthritis o f neck Intermenstrual bleeding DX:Inter menstrual bleeding Family History Medical History Relation Name Comments Other: Cardiac valve calcifi ed; during surgery for valve replacement Mother Hypertension Sister 1 Breast cancer Neg Hx Colon cancer Neg Hx Ovarian cancer Neg Hx Uterine cancer Neg Hx Relation Name Status Comments Father Alive Mother Sister 1 Alive Sister 2 Alive Social History Tobacco Use Types Packs/Day Years Used Date Smoking Tobacco: Former Cigarettes 0.1 1.5 0 05/03/2015 - 10/31/2016 Smokeless Tobacco: Never Tobacco Cessation:Counseling Given: Not Answered Alcohol Use Standard Drinks/Week Comments Yes 0 (1 standard drink = 0.6 oz pur e alcohol) Comments No Sex and Gender Information Value Date Recorded Sex Assigned at Female 06/25/2024 2:22 PM EST Legal Sex Female 11:46 AM EST Gender Identity Not on file Sexual Orientation Not on file Obstetrics History Last Filed Vital Signs Vital Sign Reading Time Taken Comments Blood Pressure 122/84 06/25/2024 8:57 AM EST Pulse 83 06/25/2024 8:57 AM EST Temperature - - Respiratory Rate 18 06/25/2024 8:57 AM EST Oxygen Saturation - - Inhaled Oxygen Concentration - - Weight 86.2 kg (190 lb) 06/25/2024 8:57 AM EST Height 157.5 cm (5' 2 ) 06/25/2024 8:57 AM EST Body Mass Index 34.75 06/25/2024 8:57 AM EST Plan of Treatment Health Maintenance Due Date Last Done Comments DTaP,Tdap,and Td Vaccines (1 - Tdap) 1989 Pneumococcal Vaccine: 50+ Years (1 of 1 - PCV) 2020 Zoster Vaccines (1 of 2) 2020 Colorectal Cancer Screening: Colonoscopy 07/17/2022 Depression Screening 07/17/2022 HIV Screening 07/17/2022 Hepatitis C Screening 07/17/2022 Social Influencers of Health Screening 07/17/2022 COVID-19 Vaccine ( season) 2024 09/03/2023, 01/03/2022, 01/17/2021, Additional history exists Influenza Vaccine (#1) 2024 , 09/11/2022, 07/07/2020 Breast Cancer Screening 07/18/2024 07/18/2022 Cervical Cancer Screening: HPV 07/07/2026 07/07/2021 Hepatitis B Vaccines Completed 04/21/2021, 08/06/2020, 06/13/2020 HIB Vaccines Aged Out No longer eligi ble based on patient's age to complete this topic HPV Vaccines Aged Out No longer eligi ble based on patient's age to complete this topic Hepatitis A Vaccines Aged Out No long er eligible based on patient's age to complete this topic IPV Vaccines Aged Out No longer eligi ble based on patient's age to complete this topic MMR Vaccines Aged Out No longer eligi ble based on patient's age to complete this topic Meningococcal ACWY Vaccine Aged Out N o longer eligible based on patient's age to complete this topic Meningococcal B Vacine Aged Out No lo nger eligible based on patient's age to complete this topic Pneumococcal Vaccine: Pediatrics (0 to 5 Years) and At-Risk Patients (6 to 64 Years) Aged Out No longer eligible based on patient's age to complete this topic RSV Immunization Patients Under 20 months Aged Out No longer eligible based on patient's age to complete this topic Varicella Vaccines Aged Out No longer eligible based on patient's age to complete this topic Procedures Procedure Name Priority Date/Time Associated Diagnosis Comments MYAH SCREENING DIGITAL Routine 07/18/2022 4:45 PM EST Encounter for screening mammogram for malignant neoplasm of breast HM HPV Routine 07/07/2021 from Last 3 Months or Most Recently Relevant to Health Maintenance Results * MYAH SCREENING DIGITAL (07/18/2022 4:45 PM EST) Anatomical Region Laterality Modality Mammography 07/18/2022 1:36 PM EST Narrative 07/18/2022 4:45 PM EST [facility] Diagnostic Imaging Department [address] [place] [id number] Patient: ??BRIANNE PARDO ?/Age/Sex: 1970 - 51 - F Unit#: ??[id number] ? Location/Status: ??SPDIMAM/REG CLI ? Mnemonic/Ordering Site: ??DIGSC/SPMAM Ordering Physician: ??JODEE GLORIA MD Myah Screening Digital - 07/18/22 - 1359 EXAM: Myah Screening Digital EXAM DATE AND TIME: 07/18/2022 2:00 PM HISTORY: ??Screening. COMPARISON: ??02/04/17, 10/23/13, 06/28/10 TECHNIQUE: CC and MLO views of both breasts were obtained using full field digital mammography. Bilateral digital breast tomosynthesis was performed in the MLO projection. Computer aided detection with [employer] 7[employer]2-H and [employer] 3D 3.1 was employed. TISSUE DENSITY: a. The breasts are almost entirely fatty. FINDINGS: Breast density has decreased significantly since the previous studies. No suspicious masses, grouped microcalcifications, or areas of architectural distortion are seen. The skin and vascularity are unremarkable. IMPRESSION: No mammographic evidence of malignancy is seen. A negative mammogram in the presence of a clinically suspicious palpable abnormality does not preclude the possibility of malignancy or alter the indications for biopsy. BI-RADS: ??Category 1: Negative RECOMMENDATION(S): 1: Routine screening mammogram BILATERAL in 1 year. [address]191, 10630 3341F, 7096F Dictating Physician: ??CHRISTELLE SOL MD Electronically Signed by: ??CHRISTELLE SOL MD Dic Date/Time: ??07/18/221644 Sign date/Time: ??07/18/221644 Procedure Note Christelle Sol MD - 09/20/2023 [facility] Diagnostic Imaging Department [address] [place], [place] [id number] Patient: BRIANNE PARDO /Age/Sex: 1970 - 51 - F Unit#: [id number] [facility]/Ordering Site: [facility] Ordering Physician: JODEE GLORIA MD [facility] Scre[facility] Digital - 07/18/22 - 1359 EXAM: [facility] Screening Digital EXAM DATE AND TIME: 07/18/2022 2:00 PM HISTORY: Screening. COMPARISON: 02/04/17, 10/23/13, 06/28/10 TECHNIQUE: CC and MLO views of both breasts were obtained using fullfield digital mammography. Bilateral digital breast tomosynthesis was performedin the MLO projection. Computer aided detection with [employer] 3D 3.1 was employed. TISSUE DENSITY: a. The breasts are almost entirely fatty. FINDINGS: Breast density has decreased significantly since the previous studies.No suspicious masses, grouped microcalcifications, or areas ofarchitectural distortion are seen. The skin and vascularity are unremarkable. IMPRESSION: No mammographic evidence of malignancy is seen. A negative mammogram in the presence of a clinically suspicious palpable abnormality does not preclude the possibility of malignancy or alter the indications for biopsy. BI-RADS: Category 1: Negative RECOMMENDATION(S): 1: Routine screening mammogram BILATERAL in 1 year. 43346, 62026 3341F, 7025F Dictating Physician: CHRISTELLE SOL MD Electronically Signed by: CHRISTELLE SOL MD Dic Date/Time: 07/18/22 164 Sign date/Time: 07/18/221644 Jodee Gloria MD IMG BI PROCEDURES Final Result * Cervical Cancer Screening: HPV (07/07/2021) Cervical Cancer Screening: HPV Negative, Abstracted Historical Provider HEALTH MAINTENANCE Final Result from Last 3 Months or Most Recently Relevant to Health Maintenance Insurance [facility] [address] [place] [address] Care Teams Carpenter Refrigerator Relationship Specialty Start Date End Date Jodee Gloria MD [address] [place] [address] [address] [place] [address] PCP - General Internal Medicine 06/24/24
== END 2024-11-03 15:59 | disposition home or self-care (01) ==
LOC: HO.HAP 15:58
PROVIDERS: Visit Provider Internal Medicine
DX: Z46.1 Encounter for fitting and adjustment of hearing aid (principal); H90.3 Sensorineural hearing loss, bilateral
CPT/HCPCS: V5299